=== PATIENT | female | born 1995 | race Asian ===

== ENCOUNTER → 2016-08-21 | Outpatient (REF) | payer OTHER ==
[~2016-08-21] MED LIST: BETH25TA37 PO; BUTATAB6 PO; CIPR500T89 PO; DICL75TA PO; Docusate Sod/Senna PO; IBUP80TA PO; METH-107 PO; NEUR100C PO; PEG1POW PO; PRED20TAB PO; PROT1TAB2 PO; ZOFR4TAB3 PO
[2016-08-21 18:10] LABS: BASO % 0.2 % (0.0-1.0); EOS # 0.1 K/mm3 (0.0-0.50); EOS % 0.7 % (0.0-3.0); LARGE UNSTAINED CELL # 0.2 K/mm3 (0.0-0.4); LARGE UNSTAINED CELL % 1.5 % (0.0-4.0); LYMPH # 2.2 K/mm3 (1.5-6.5); LYMPH % 20.2 % (24.0-44.0); MEAN CORPUSCULAR HEMOGLOBIN 21.1 pg (27.0-33.0); MEAN CORPUSCULAR HGB CONC 30.2 g/dl (32.0-36.5); MEAN CORPUSCULAR VOLUME 69.6 fl (80.0-96.0); MONO # 0.4 K/mm3 (0.0-0.8); MONO % 3.5 % (0.0-5.0); NEUTROPHILS # 8.2 K/mm3 (1.8-7.7); PLATELET COUNT, AUTOMATED 176 k/mm3 (150-450); RED CELL DISTRIBUTION WIDTH 14.5 % (11.5-14.5); WHITE BLOOD COUNT 11.1 K/mm3 (4.0-10.0)
[2016-08-21 19:03] LABS: ALBUMIN 3.8 GM/DL (3.2-5.2); ALBUMIN/GLOBULIN RATIO 1.19 (1.00-1.93); ALKALINE PHOSPHATASE 68 U/L (45-117); ALT/SGPT 41 U/L (12-78); AMYLASE 60 U/L (25-115); ANION GAP 10 MEQ/L (8-16); AST/SGOT 21 U/L (15-37); BILIRUBIN,TOTAL 0.7 MG/DL (0.2-1.0); BLOOD UREA NITROGEN 10 MG/DL (7-18); CALCIUM LEVEL 9.2 MG/DL (8.5-10.1); CARBON DIOXIDE LEVEL 26 MEQ/L (21-32); CHLORIDE LEVEL 106 MEQ/L (98-107); CREATININE FOR GFR 0.87 MG/DL (0.55-1.02); GLOMERULAR FILTRATION RATE > 60.0 (>60); GLUCOSE, FASTING 70 MG/DL (70-105); POTASSIUM SERUM 4.2 MEQ/L (3.5-5.1); SODIUM LEVEL 142 MEQ/L (136-145)
[2016-08-24 18:04] LABS: PERCENT SATURATION 24.8 % (13.2-37.4)
== END ==
LOC: M SFHCPLAZ 16:03
PROVIDERS: ATTEND Nurse Practitioner Family
DX: R10.13 Epigastric pain (principal)

== ENCOUNTER → 2016-09-22 | Outpatient (CLI) | payer OTHER ==
--- NOTE | 2016-09-22 08:37 | REP ---
Clinical: Epigastric pain. Technique: Alejandra scale ultrasound using curved array transducer. Findings: The liver and pancreas are normal in contour, size, and echogenicity without focal hepatic or pancreatic lesions identified. The gallbladder is normal without gallstones, wall thickening or pericholecystic fluid. No biliary ductal dilatation is appreciated, and the common bile duct measures 4.8 mm diameter. The right kidney is normal in reniform shape without hydronephrosis and measures 10.1 x 5.2 x 3.9 cm. No ascites. Visualized portions of the abdominal aorta normal. Impression: Normal right upper quadrant and gallbladder abdominal ultrasound. Signed by Khai Grant MD 09/22/2016 08:29 A
== END ==
LOC: M RAD 07:35
PROVIDERS: ATTEND Nurse Practitioner Adult Health
DX: R10.13 Epigastric pain (principal)

== ENCOUNTER → 2017-03-25 | Outpatient (REF) | payer OTHER ==
[~2017-03-25] MED LIST changes: +BUPR150T5 PO; +CIPR-249 PO; -CIPR500T89 PO; -METH-107 PO; +METH1TAB40 PO; +NUVAMIS2 PV; +OMEP40CA2 PO
[2017-03-25 17:55] LABS: ALBUMIN 3.9 GM/DL (3.2-5.2); ALBUMIN/GLOBULIN RATIO 1.08 (1.00-1.93); ALKALINE PHOSPHATASE 75 U/L (45-117); ALT/SGPT 21 U/L (12-78); AMYLASE 80 U/L (25-115); ANION GAP 8 MEQ/L (8-16); AST/SGOT 19 U/L (15-37); BILIRUBIN,TOTAL 0.9 MG/DL (0.2-1.0); BLOOD UREA NITROGEN 11 MG/DL (7-18); CALCIUM LEVEL 9.5 MG/DL (8.5-10.1); CARBON DIOXIDE LEVEL 25 MEQ/L (21-32); CHLORIDE LEVEL 105 MEQ/L (98-107); CREATININE FOR GFR 0.88 MG/DL (0.55-1.02); GLOMERULAR FILTRATION RATE > 60.0 (>60); GLUCOSE, FASTING 76 MG/DL (70-105); POTASSIUM SERUM 4.2 MEQ/L (3.5-5.1); SODIUM LEVEL 138 MEQ/L (136-145); TOTAL PROTEIN 7.5 GM/DL (6.4-8.2)
[2017-03-25 19:06] LABS: BASO % 0.3 % (0.0-1.0); EOS % 0.3 % (0.0-3.0); LARGE UNSTAINED CELL # 0.1 K/mm3 (0.0-0.4); LARGE UNSTAINED CELL % 0.9 % (0.0-4.0); LYMPH # 2.7 K/mm3 (1.5-6.5); LYMPH % 21.6 % (24.0-44.0); MEAN CORPUSCULAR HEMOGLOBIN 21.7 pg (27.0-33.0); MEAN CORPUSCULAR HGB CONC 31.5 g/dl (32.0-36.5); MEAN CORPUSCULAR VOLUME 68.9 fl (80.0-96.0); MONO # 0.4 K/mm3 (0.0-0.8); MONO % 3.1 % (0.0-5.0); NEUTROPHILS # 8.8 K/mm3 (1.8-7.7); NEUTROPHILS % 73.8 % (36.0-66.0); PLATELET COUNT, AUTOMATED 202 k/mm3 (150-450); RED CELL DISTRIBUTION WIDTH 14.4 % (11.5-14.5)
[2017-03-25 19:09] LABS: ADD MORPHOLOGY? YES
[2017-03-25 21:12] LABS: MICROCYTOSIS 3+
[2017-03-25 21:13] LABS: GIANT PLATELETS 1+
== END ==
LOC: M SFHCPLAZ 15:27
PROVIDERS: ATTEND Nurse Practitioner Family
DX: K21.9 Gastro-esophageal reflux disease without esophagitis (principal); R10.13 Epigastric pain; R53.83 Other fatigue; R11.0 Nausea

== ENCOUNTER → 2017-04-09 | Outpatient (CLI) | payer OTHER ==
--- NOTE | 2017-04-09 14:45 | REP ---
Hepatobiliary scan and gallbladder ejection fraction: History: Epigastric pain and nausea. Technique: 6.6 mCi of technetium-99m mebrofenin was injected and sequential anterior images are acquired. 65 minutes after the mebrofenin injection, the patient consumed 8 ounces Ensure and an additional 60 minutes of imaging was acquired. Regions of interest are plotted around the gallbladder. Findings: The initial hepatocellular parenchymal uptake phase is normal and homogeneous. Intra- and extra-hepatic bile ducts and duodenum are labeled by the 10 -minute image. The gallbladder is first labeled on the 10 -minute image. There is normal washout from the liver parenchyma into the gallbladder and small intestine on subsequent images. The gallbladder ejection fraction is 15 %. Values greater than 35 % are considered normal with this technique. Impression: Normal hepatobiliary scan and decreased gallbladder ejection fraction. Signed by Francisco Ramos MD 04/09/2017 10:47 A
== END ==
LOC: M RAD 07:57
PROVIDERS: ATTEND Nurse Practitioner Family
DX: K21.9 Gastro-esophageal reflux disease without esophagitis (principal); R10.13 Epigastric pain; R11.0 Nausea

== ENCOUNTER → 2017-04-15 | Outpatient (REF) | payer OTHER | LOC: M SFHCPLAZ 06:00 | PROVIDERS: ATTEND Nurse Practitioner Family | DX: K21.9 Gastro-esophageal reflux disease without esophagitis (principal); R10.13 Epigastric pain ==

== ENCOUNTER 2017-05-21 11:59 | Day surgery (SDC) | payer OTHER ==
[~2017-05-21] VITALS: Ht 162.6 cm; Wt 89.8 kg
[2017-05-21] MEDS ORDERED: LR 1,000 ML IV SCH ×2 (12:15→14:45)
[2017-05-21 12:38] LABS: CONTROL LINE UCG INT CTR LINE PRESENT
[2017-05-21] MEDS ORDERED: LIDOCAINE 2% INJ 100 MG/5 ML SDV (FOR ANES.) As Ordered ONE (13:13)
[2017-05-21] MEDS ORDERED: GLYCOPYRROLATE INJ 0.2 MG/ML 2 ML VIAL As Ordered ONE (13:13)
[2017-05-21] MEDS ORDERED: dexameTHASONE 4 MG/ML 1ML VIAL (J1100) As Ordered ONE (13:13)
[2017-05-21] MEDS ORDERED: PROPOFOL 200 MG/20 ML VIAL As Ordered ONE (13:13)
[2017-05-21] MEDS ORDERED: ROCURONIUM BROMIDE 50 MG/5 ML VIAL/SYRINGE As Ordered ONE (13:13)
[2017-05-21] MEDS ORDERED: NEOSTIGMINE 10 MG/10 ML VIAL (J2710) As Ordered ONE (13:13)
[2017-05-21] MEDS ORDERED: ONDANSETRON 4MG/2ML VIAL (J2405) As Ordered ONE (13:13)
[2017-05-21] MEDS ORDERED: HYDROmorphone HCL 2 MG/ML 1ML VIAL (J1170) As Ordered ONE (13:13)
[2017-05-21] MEDS ORDERED: fentaNYL 100 MCG/2 ML INJECTION (J3010) As Ordered ONE (13:14)
[2017-05-21] MEDS ORDERED: MIDAZOLAM INJ 2 MG/2 ML VIAL (J2250) As Ordered ONE (13:14)
[2017-05-21] MEDS ORDERED: BUPIVACAINE/EPIN 0.25% 30 ML VIAL As Ordered ONE (13:29)
[2017-05-21] MEDS ORDERED: fentaNYL 100 MCG/2 ML INJECTION (J3010) IV PRN (14:45)
[2017-05-21] MEDS ORDERED: METOCLOPRAMIDE INJ 10MG/2ML VIAL (J2765) IV PRN (14:45)
[2017-05-21] MEDS ORDERED: HYDROmorphone HCL 1 MG/ML SYRINGE (J1170) IV PRN (14:45)
[2017-05-21] MEDS ORDERED: PERCOCET 5MG/325MG TAB PO PRN (14:45)
[2017-05-21] MEDS ORDERED: NORCO, ANEXSIA 5/325MG TABLET (HYDROcodone/ACETAMINOPHEN) PO PRN (14:45)
[2017-05-21] MEDS ORDERED: ONDANSETRON 4MG/2ML VIAL (J2405) IV PRN (14:45)
[2017-05-21 16:40] VITALS: BP 124/60
--- NOTE | 2017-05-21 19:41 | RO ---
DATE OF PROCEDURE: 05/21/2017 PREOPERATIVE DIAGNOSIS: Biliary dyskinesia. POSTOPERATIVE DIAGNOSIS: Biliary dyskinesia. PROCEDURE: Laparoscopic cholecystectomy. SURGEON: Dr. Sapp DIRECTOR DRUG: Dr. Aiken ANESTHESIA: General: ESTIMATED BLOOD LOSS: 5 COMPLICATIONS: None. INDICATION FOR PROCEDURE: The patient is a 21-year-old female presents with intermittent right upper quadrant abdominal pain found to have biliary dyskinesia. Recommendation was to proceed with laparoscopic possible open cholecystectomy. Risks and procedure not limited but including bleeding, infection, hernia formation, damage surrounding structure need further surgery discussed in detail with the patient. Informed was obtained and procedure was planned. PROCEDURE: The patient was brought back to operating room six. After sufficient sedation the abdomen was sterilely prepped, draped. Next a time out was done for proper patient, proper procedure. Following that stab incision made in left lower quadrant. Veress needle was inserted and the abdomen was insufflated with 50 mmHg. Next a 5 mm infraumbilical incision made. OptiVu port was used to gain access to the abdomen. Once the abdomen was entered, Veress needle site was examined. There are no signs of injury. Veress needle was then removed. The 10 mm port was then placed subxiphoid. Two 5 meters ports in right upper quadrant. Next, the fundus of gallbladder is grasped elevated up towards the right shoulder. Cystic duct and cystic artery were both then dissected free using combination of blunt and sharp dissection. Once they were both clearly identified they were both doubly clipped and cut. Gallbladder is removed from gallbladder fossa electrocautery brought out through the subxiphoid port site in a 10 mm EndoCatch bag. Abdomen was then desufflated. Skin incisions were closed with 4-0 Vicryl subcuticular sutures. The abdomen cleaned and dried. Steri-Strips, 4x4 and tape were applied thus ending procedure.
== END 2017-05-21 16:45 | disposition home or self-care (01) ==
LOC: M SDC 11:59
PROVIDERS: ATTEND Surgery
DX: K82.8 Other specified diseases of gallbladder (principal); K21.9 Gastro-esophageal reflux disease without esophagitis; F41.9 Anxiety disorder, unspecified; F32.9 Major depressive disorder, single episode, unspecified; G43.909 Migraine, unspecified, not intractable, without status migrainosus; Z79.899 Other long term (current) drug therapy; Z79.3 Long term (current) use of hormonal contraceptives

== ENCOUNTER → 2018-09-20 | Outpatient (REF) | payer OTHER ==
[~2018-09-20] MED LIST changes: +ZOFR4TAB14 PO; -ZOFR4TAB3 PO
== END ==
LOC: M LAB REF 12:59
PROVIDERS: ATTEND Advanced Practice Midwife
DX: Z12.4 Encounter for screening for malignant neoplasm of cervix (principal)

== ENCOUNTER → 2018-09-30 | Outpatient (CLI) | payer OTHER ==
--- NOTE | 2018-09-30 15:52 | REP ---
SONOGRAPHY OF THE PELVIS: The uterus measures 7.4 x 3.8 x 4.5 cm. Endometrial stripe is 2.4 mm, normal. The uterus is anteverted. The right ovary measures 3.9 x 2.6 x 1.7 cm. Within this structure is a 4.5 x 4.6 x 2.8 mm echogenic focus. The resistive index is 0.40. Left ovary 4.1 x 2.1 x 2.5 cm. No abnormality within the ovary. No free fluid in cul-de-sac. IMPRESSION: Normal study of the uterus. No torsion bilaterally. There is an echogenic focus in the right ovary. This could represent a fat deposit involuted follicle or possibly even some other type of lesion. The bladder did measure 4.1 x 1.2 x 6.3 cm. Unreviewed
== END ==
LOC: M RAD 14:03
PROVIDERS: ATTEND Advanced Practice Midwife
DX: R10.9 Unspecified abdominal pain (principal)

== ENCOUNTER → 2020-07-18 | Outpatient (CLI) | payer OTHER ==
[~2020-07-18] MED LIST changes: -OMEP40CA2 PO; +OMEP40CA97 PO
--- NOTE | 2020-07-18 16:52 | REP ---
INDICATION: EPIGASTRIC MASS EVAL FOR INCISIONAL HERNIA. COMPARISON: Abdomen and pelvis CT dated 08/21/2014. TECHNIQUE: Multiple real-time ultrasonographic images. FINDINGS: Ultrasound of the palpable lump in the abdominal right upper quadrant is performed between 2 scars. There is an ovoid slightly hypoechoic mass within the soft tissues, very subtle measuring 3.2 x 1.5 x 3.0 cm. With Doppler ultrasound no vascular flow is identified. IMPRESSION: Nonspecific mass within the right upper quadrant abdominal wall as described. This could represent lipoma or other soft tissue mass. I do not see an intraperitoneal extension on the images provided. Consider follow-up MRI or CT for further evaluation. <Electronically signed by Geoff Ramirez > 07/18/20 [id number]
== END ==
LOC: M RAD 13:50
PROVIDERS: ATTEND Physician Assistant
DX: R19.06 Epigastric swelling, mass or lump (principal)

== ENCOUNTER → 2020-08-16 | Outpatient (CLI) | payer OTHER ==
[~2020-08-16] MED LIST changes: +GASTROGRAFIN SOLUTION 30ML (Q9963) As Ordered ONE; +ISOVUE-370 76% 100ML VIAL As Ordered ONE
--- NOTE | 2020-08-16 17:58 | REP ---
INDICATION: EPIGASTRIC PAIN. COMPARISON: None. TECHNIQUE: Axial contrast-enhanced images of the abdomen using oral and 100 cc Isovue 370 intravenous contrast material with coronal and sagittal reformations. . This CT examination was performed using the following dose reduction techniques: Automated exposure control, adjustment of mA and/or kv according to the patient's size, and use of iterative reconstruction technique. FINDINGS: Lung bases are clear. Visualized heart and pericardium normal. Liver, spleen, pancreas, bilateral adrenal glands and kidneys are normal. Evidence for prior cholecystectomy. Visualized portions of the small and large bowel are unremarkable. There is a 2.8 cm fat containing supraumbilical ventral hernia to the right of midline (series 201; images 44-53). No ascites in the visualized abdomen. No free air. No adenopathy. Abdominal aorta and vasculature appear normal. Musculoskeletal structures intact and without acute osseous abnormality. IMPRESSION: Small fat containing supraumbilical ventral hernia. <Electronically signed by Khai Grant > 08/16/20 [id number]
== END ==
LOC: M RAD 16:08
PROVIDERS: ATTEND Physician Assistant
DX: R10.13 Epigastric pain (principal)
CPT/HCPCS: 74160; Q9963; Q9967

== ENCOUNTER → 2020-09-11 | Outpatient (CLI) | payer OTHER ==
[~2020-09-11] MED LIST changes: +ATIV1TAB10 PO; +BUTA-199 PO; -BUTATAB6 PO; -GASTROGRAFIN SOLUTION 30ML (Q9963) As Ordered ONE; -ISOVUE-370 76% 100ML VIAL As Ordered ONE; +METH-1164 PO; -METH1TAB40 PO; +OMEP10CASR PO; +VENL150C43 PO
== END ==
LOC: M LABSMTC 11:01
PROVIDERS: ATTEND Anesthesiology
DX: Z01.812 Encounter for preprocedural laboratory examination (principal); Z20.822 Contact with and (suspected) exposure to COVID-19

== ENCOUNTER 2020-09-16 09:54 | Day surgery (SDC) | payer OTHER ==
[~2020-09-16] VITALS: Ht 162.6 cm; Wt 77.6 kg
[~2020-09-16 09:54] MED LIST changes: +LR 1,000 ML IV ONE; +ceFAZolin SOD 2 GM in IV 1 EA IV ONE
[2020-09-16 10:33] LABS: HEMATOCRIT 41.5 % (36.0-47.0); HEMOGLOBIN 12.3 g/dl (12.0-15.5); MEAN CORPUSCULAR HEMOGLOBIN 21.3 pg (27.0-33.0); MEAN CORPUSCULAR HGB CONC 29.6 g/dl (32.0-36.5); MEAN CORPUSCULAR VOLUME 71.9 fl (80.0-96.0); PLATELET COUNT, AUTOMATED 168 10^3/uL (150-450); RED BLOOD COUNT 5.77 10^6/uL (4.00-5.40); WHITE BLOOD COUNT 6.6 10^3/uL (4.0-10.0)
[2020-09-16] MEDS ORDERED: BUPIVACAINE/EPIN 0.25% 30 ML VIAL As Ordered ONE (11:16)
[2020-09-16] MEDS ORDERED: SUGAMMADEX SODIUM 500 MG/5 ML VIAL (BRIDION) As Ordered ONE (11:50)
[2020-09-16] MEDS ORDERED: METOCLOPRAMIDE INJ 10MG/2ML VIAL (J2765 PER 1) As Ordered ONE (11:50)
[2020-09-16] MEDS ORDERED: dexameTHASONE 4 MG/ML 1ML VIAL (J1100 PER 1MG) As Ordered ONE (11:50)
[2020-09-16] MEDS ORDERED: LIDOCAINE 2% 100MG/5ML SDV (FOR ANES.) As Ordered ONE (11:50)
[2020-09-16] MEDS ORDERED: KETOROLAC 60MG 2ML VIAL As Ordered ONE (11:50)
[2020-09-16] MEDS ORDERED: MIDAZOLAM INJ 2MG/2ML VIAL (J2250 PER 1MG) As Ordered ONE (11:50)
[2020-09-16] MEDS ORDERED: ROCURONIUM BROMIDE 50 MG/5 ML VIAL As Ordered ONE (11:50)
[2020-09-16] MEDS ORDERED: fentaNYL 250 MCG/5 ML INJECTION (J3010) As Ordered ONE (11:50)
[2020-09-16] MEDS ORDERED: ONDANSETRON 4MG/2ML VIAL As Ordered ONE (11:50)
[2020-09-16] MEDS ORDERED: propofoL 200 MG/20 ML VIAL As Ordered ONE ×2 (11:50→12:12)
[2020-09-16] MEDS ORDERED: ACETAMINOPHEN 1000MG 100ML IV BTL (OFIRMEV) (J0131 PER 10MG) As Ordered ONE (11:50)
[2020-09-16] MEDS ORDERED: fentaNYL 100 MCG/2 ML INJECTION (J3010) As Ordered ONE (12:56)
[2020-09-16] MEDS ORDERED: PERCOCET 5MG/325MG TAB As Ordered ONE ×2 (12:56→15:22)
[2020-09-16] MEDS: fentaNYL 100 MCG/2 ML INJECTION (J3010) IV PRN ×3 (13:00→13:10)
[2020-09-16] MEDS ORDERED: ONDANSETRON 4MG/2ML VIAL IV PRN (13:15)
[2020-09-16] MEDS ORDERED: METOCLOPRAMIDE INJ 10MG/2ML VIAL (J2765 PER 1) IV PRN (13:15)
[2020-09-16] MEDS ORDERED: LR 1,000 ML IV SCH (13:15)
[2020-09-16] MEDS ORDERED: PERCOCET 5MG/325MG TAB PO PRN (13:15)
[2020-09-16] MEDS ORDERED: NORCO, ANEXSIA 5/325MG TABLET (HYDROcodone/ACETAMINOPHEN) PO PRN (13:15)
--- NOTE | 2020-09-16 13:15 | RO ---
OPERATIVE NOTE DATE OF OPERATION: 09/16/2020 PREOPERATIVE DIAGNOSIS: Incarcerated incisional hernia. POSTOPERATIVE DIAGNOSIS: Incarcerated incisional hernia. PROCEDURES: Robotic repair of incarcerated incisional hernia. SURGEON: Geoff Sapp DO FIG BAR MACHINE OPERATOR: JAVON BASS ANESTHESIA: General. ESTIMATED BLOOD LOSS: 5 mL. COMPLICATIONS: None. INDICATIONS FOR PROCEDURE: The patient is a 25-year-old female status post laparoscopic cholecystectomy a few years ago and now presents with epigastric tenderness and a bulge. She was found to have an epigastric incisional hernia from a prior port site. Recommendation is to proceed with robotic repair. Risks and benefits of the procedure, not limited to, but including bleeding, infection, hernia formation, hernia recurrence, damage to surrounding structures, and need for further surgery, were discussed in detail with the patient. Informed consent was obtained and the procedure was planned. DESCRIPTION OF PROCEDURE: The patient was brought back to operating room #7. After sufficient sedation, the abdomen was sterilely prepped and draped. Next, a time-out was done to confirm the proper patient and proper procedure. Following that, in the left lower quadrant, an 8-mm incision was made and an 8-mm Optiview port was used to gain access to the abdomen. Once the abdomen was entered, two more ports were placed, one infraumbilically in the midline and one in the left mid abdomen. Next, the robot was docked to the ports. Once the abdomen was examined from the console, I was able to see the hernia inside of the falciform ligament. The falciform was transected and the preperitoneal space was dissected free superiorly until the hernia was identified. The defect itself was about a centimeter in size. After reducing all of the fat contents that were within it, I was able to suture it closed primarily using a 0-Stratafix suture. Next, a 2 x 4-cm oval of ProGrip mesh was then placed over top of the suture defect and then the peritoneal defect was closed over top of this using a 2-0 V-Loc suture. Once I was completed, needles were removed. The abdomen was desufflated. Skin incisions were closed with 4-0 Vicryl subcuticular sutures. The abdomen was cleaned and dried. Steri-Strips, 4x4, and tape were applied.
[2020-09-16] MEDS ORDERED: MORPHINE 4 MG/ML 1ML VIAL/SYRINGE (J2270) As Ordered ONE (13:26)
[2020-09-16] MEDS ORDERED: MORPHINE 2 MG/ML 1ML VIAL (J2270) IV PRN (13:45)
[2020-09-16 15:15] VITALS: BP 117/71
== END 2020-09-16 15:30 | disposition home or self-care (01) ==
LOC: M SDC 09:54
PROVIDERS: ATTEND Surgery
DX: K43.0 Incisional hernia with obstruction, without gangrene (principal); K21.9 Gastro-esophageal reflux disease without esophagitis; F41.9 Anxiety disorder, unspecified; F32.9 Major depressive disorder, single episode, unspecified; D64.9 Anemia, unspecified; Z79.899 Other long term (current) drug therapy
CPT/HCPCS: 36415; 49655; 81025; 85027; C1781; J0131; J0690; J1100; J1885; J2250; J2270; J2405; J2765; J3010; S2900

== ENCOUNTER 2020-12-30 09:43 | Emergency (ER) | payer MEDICAID, OTHER ==
[~2020-12-30] VITALS: Ht 162.6 cm; Wt 80.9 kg
[~2020-12-30 09:43] MED LIST changes: -LR 1,000 ML IV ONE; -PEG1POW PO; +POLY17PO18 PO; -ceFAZolin SOD 2 GM in IV 1 EA IV ONE
[2020-12-30] MEDS ORDERED: KETOROLAC 30 MG/ML 1ML VIAL IV ONE (11:05)
[2020-12-30 11:39] LABS: BASO % 0.3 % (0.0-1.0); EOS # 0.1 10^3/uL (0.0-0.5); EOS % 0.9 % (0.0-3.0); HEMOGLOBIN 12.5 g/dl (12.0-15.5); LYMPH # 2.2 10^3/uL (1.5-5.0); LYMPH % 28.3 % (24.0-44.0); MEAN CORPUSCULAR HEMOGLOBIN 21.6 pg (27.0-33.0); MEAN CORPUSCULAR HGB CONC 30.5 g/dl (32.0-36.5); MEAN CORPUSCULAR VOLUME 70.8 fl (80.0-96.0); MONO # 0.5 10^3/uL (0.0-0.8); MONO % 6.3 % (2.0-8.0); NEUTROPHILS % 63.8 % (36.0-66.0); PLATELET COUNT, AUTOMATED 251 10^3/uL (150-450); RED BLOOD COUNT 5.79 10^6/uL (4.00-5.40); WHITE BLOOD COUNT 7.8 10^3/uL (4.0-10.0)
[2020-12-30 12:28] LABS: BLOOD UREA NITROGEN 11 MG/DL (7-18); CALCIUM LEVEL 9.2 MG/DL (8.5-10.1); CARBON DIOXIDE LEVEL 25 MEQ/L (21-32); CHLORIDE LEVEL 108 MEQ/L (98-107); CREATININE FOR GFR 0.86 MG/DL (0.55-1.30); GLOMERULAR FILTRATION RATE > 60.0 (>60); GLUCOSE, FASTING 91 MG/DL (70-100); POTASSIUM SERUM 4.3 MEQ/L (3.5-5.1); SODIUM LEVEL 138 MEQ/L (136-145)
[2020-12-30 12:29] LABS: CK-MB VALUE MASS < 1.0 NG/ML (<3.6); CPK CREATINE PHOSPHOKINASE 96 U/L (26-192); MB/CK RELATIVE INDEX 1.04 (< OR =4); THYROID STIMULATING HORMONE 0.537 uIU/ML (0.358-3.740); TROPONIN I < 0.02 NG/ML (< 0.10)
[2020-12-30 12:45] VITALS: BP 121/78
--- NOTE | 2020-12-30 20:15 | ECGEPIP ---
[facility] - ED Test Date: 2020-12-30 Pat Name: ANUJ DAIGLE Department: Room: - Gender: Female V/[employer] [place] Signal Officer: KATE : 1995 Requested By: DARLING ALEJANDRO Order Number: [id number] Reading MD: Anastacio Benoit Measurements Intervals [place] Rate: 65 P: 28 [place]: 172 QRS: 29 QRSD: 82 T: 40 QT: 398 QTc: 413 Interpretive Statements Normal sinus rhythm Delayed anterior R wave progression Low QRS complex voltage in the limb leads Similar to tracing done 03-25-16 Electronically Signed on 12-30-2020 20:14:44 EDT by Anastacio Benoit
== END 2020-12-30 12:53 | disposition home or self-care (01) ==
LOC: M ED 09:43
DX: R55 Syncope and collapse (principal); S06.0X9A Concussion with loss of consciousness of unspecified duration, initial encounter; W01.0XXA Fall on same level from slipping, tripping and stumbling without subsequent striking against object, initial encounter; Y92.511 Restaurant or cafe as the place of occurrence of the external cause; Y93.9 Activity, unspecified; Y99.9 Unspecified external cause status
CPT/HCPCS: 80048; 82550; 82553; 84443; 84702; 85025; 93005; 93041; 96374; 99285; J1885

== ENCOUNTER → 2021-07-22 | Outpatient (CLI) | payer OTHER, MEDICAID ==
[~2021-07-22] MED LIST changes: +OMEP40CA4 PO; -OMEP40CA97 PO
== END ==
LOC: M WUC 09:22
PROVIDERS: ATTEND Nurse Practitioner Family
DX: M79.641 Pain in right hand (principal); M79.644 Pain in right finger(s)

== ENCOUNTER → 2022-09-17 | Outpatient (REF) ==
[~2022-09-17] MED LIST changes: +BUPR-71 PO; -BUPR150T5 PO
== END ==
LOC: M EMP 10:42
PROVIDERS: ATTEND Family Medicine
DX: Z11.52 Encounter for screening for COVID-19 (principal)

== ENCOUNTER → 2022-09-21 | Outpatient (REF) | LOC: M EMP 08:08 | PROVIDERS: ATTEND Family Medicine | DX: Z11.52 Encounter for screening for COVID-19 (principal) ==

== ENCOUNTER → 2022-11-03 | Outpatient (REF) | LOC: M EMP 11:19 | PROVIDERS: ATTEND Family Medicine | DX: Z11.52 Encounter for screening for COVID-19 (principal) ==

== ENCOUNTER → 2023-02-05 | Outpatient (REF) | payer OTHER, MEDICAID ==
[~2023-02-05] MED LIST changes: +ETON1VAG7 PV; -NUVAMIS2 PV
[2023-02-05 08:10] LABS: BASO % 0.4 % (0.0-1.0); EOS # 0.3 10^3/uL (0.0-0.5); EOS % 3.8 % (0.0-3.0); HEMATOCRIT 40.4 % (36.0-47.0); HEMOGLOBIN 12.6 g/dl (12.0-15.5); LYMPH # 2.6 10^3/uL (1.5-5.0); LYMPH % 32.8 % (24.0-44.0); MEAN CORPUSCULAR HEMOGLOBIN 21.6 pg (27.0-33.0); MEAN CORPUSCULAR HGB CONC 31.2 g/dl (32.0-36.5); MEAN CORPUSCULAR VOLUME 69.2 fl (80.0-96.0); MONO # 0.5 10^3/uL (0.0-0.8); MONO % 6.9 % (2.0-8.0); NEUTROPHILS # 4.4 10^3/uL (1.5-8.5); NEUTROPHILS % 55.8 % (36.0-66.0); PLATELET COUNT, AUTOMATED 201 10^3/uL (150-450); RED BLOOD COUNT 5.84 10^6/uL (4.00-5.40); WHITE BLOOD COUNT 7.8 10^3/uL (4.0-10.0)
[2023-02-05 08:12] LABS: APPEARANCE, URINE CLEAR (CLEAR); BACTERIA, URINE AUTO NEGATIVE (NEGATIVE); BILIRUBIN, URINE AUTO NEGATIVE (NEGATIVE); BLOOD, URINE BLOOD NEGATIVE (NEGATIVE); COLOR, URINE YELLOW (YELLOW); GLUCOSE, URINE (UA) AUTO NEGATIVE (NEGATIVE); KETONE, URINE AUTO NEGATIVE (NEGATIVE); LEUKOCYTE ESTERASE, URINE AUTO NEGATIVE (NEGATIVE); MUCUS, URINE SMALL (NEGATIVE); NITRITE, URINE AUTO NEGATIVE (NEGATIVE); PROTEIN, URINE AUTO NEGATIVE (NEGATIVE); RBC, URINE AUTO 0 /HPF (0-3); SPECIFIC GRAVITY URINE AUTO 1.024 (1.002-1.035); SQUAMOUS EPITHELIAL CELL UR AU 0 /HPF (0-6); UROBILINOGEN, URINE AUTO 0.2 mg/dL (0.0-2.0); WBC, URINE AUTO 0 /HPF (0-3)
[2023-02-05 08:37] LABS: ALBUMIN 4.1 G/DL (3.2-5.2); ALKALINE PHOSPHATASE 70 U/L (46-116); ALT/SGPT 9 U/L (7.0-40); AST/SGOT 22 U/L (<34); BILIRUBIN,TOTAL 0.5 MG/DL (0.3-1.2); BLOOD UREA NITROGEN 22 MG/DL (9-23); CALCIUM LEVEL 9.1 MG/DL (8.5-10.1); CARBON DIOXIDE LEVEL 26 MMOL/L (20-31); CHLORIDE LEVEL 109 MMOL/L (98-107); CHOLESTEROL LEVEL 181 MG/DL (<200); CREATININE FOR GFR 0.92 MG/DL (0.55-1.30); GLOMERULAR FILTRATION RATE > 60.0 (>60); GLUCOSE, FASTING 94 MG/DL (60-100); HDL CHOLESTEROL 53.1 MG/DL (>40); LDL CHOLESTEROL 107.9 MG/DL (<100); NON-HDL-C 127.9 MG/DL; POTASSIUM SERUM 4.3 MMOL/L (3.5-5.1); SODIUM LEVEL 139 MMOL/L (136-145); TOTAL PROTEIN 6.9 G/DL (5.7-8.2); TRIGLYCERIDES LEVEL 100 MG/DL (<150)
[2023-02-05 08:38] LABS: FERRITIN 24.4 NG/ML (7.3-270.7); THYROXINE (T4) 8.3 UG/DL (4.5-10.9); TOTAL 25(OH) VITAMIN D 26.5 NG/ML (20.0-100.0)
[2023-02-05 08:39] LABS: FREE T3 3.4 PG/ML (2.3-4.2); FREE T4 1.04 NG/DL (0.89-1.76); THYROID STIMULATING HORMONE 0.883 uIU/ML (0.55-4.78); VITAMIN B12 LEVEL 840 PG/ML (211-911)
== END ==
LOC: M LAB REF 07:46
PROVIDERS: ATTEND Family Medicine
DX: K21.9 Gastro-esophageal reflux disease without esophagitis (principal)

== ENCOUNTER → 2023-07-21 | Outpatient (REF) | payer OTHER ==
[2023-07-21 22:20] LABS: APPEARANCE, URINE HAZY (CLEAR); BACTERIA, URINE AUTO 1+ (NEGATIVE); BILIRUBIN, URINE AUTO NEGATIVE (NEGATIVE); BLOOD, URINE BLOOD 1+ (NEGATIVE); COLOR, URINE YELLOW (YELLOW); GLUCOSE, URINE (UA) AUTO NEGATIVE (NEGATIVE); KETONE, URINE AUTO NEGATIVE (NEGATIVE); LEUKOCYTE ESTERASE, URINE AUTO 2+ (NEGATIVE); MUCUS, URINE SMALL (NEGATIVE); NITRITE, URINE AUTO NEGATIVE (NEGATIVE); PROTEIN, URINE AUTO NEGATIVE (NEGATIVE); RBC, URINE AUTO 1 /HPF (0-3); SPECIFIC GRAVITY URINE AUTO 1.003 (1.002-1.035); SQUAMOUS EPITHELIAL CELL UR AU 1 /HPF (0-6); UROBILINOGEN, URINE AUTO 0.2 mg/dL (0.0-2.0); WBC, URINE AUTO 11 /HPF (0-3)
== END ==
LOC: M LAB REF 21:11
PROVIDERS: ATTEND Physician Assistant
DX: N39.0 Urinary tract infection, site not specified (principal)

== ENCOUNTER → 2023-07-26 | Outpatient (REF) | LOC: M EMP 10:30 | PROVIDERS: ATTEND Family Medicine | DX: Z11.52 Encounter for screening for COVID-19 (principal) ==

== ENCOUNTER → 2024-07-03 | Outpatient (REF) | LOC: M EMP 09:04 | PROVIDERS: ATTEND Family Medicine | DX: Z11.52 Encounter for screening for COVID-19 (principal) ==

== ENCOUNTER → 2024-08-31 | Outpatient (REF) | payer OTHER ==
[2024-08-31 08:16] LABS: BASO % 0.3 % (0.0-1.0); EOS # 0.2 10^3/uL (0.0-0.5); EOS % 2.1 % (0.0-3.0); HEMATOCRIT 39.4 % (36.0-47.0); HEMOGLOBIN 12.1 g/dl (12.0-15.5); LYMPH # 2.2 10^3/uL (1.5-5.0); LYMPH % 24.8 % (24.0-44.0); MEAN CORPUSCULAR HEMOGLOBIN 21.2 pg (27.0-33.0); MEAN CORPUSCULAR HGB CONC 30.7 g/dl (32.0-36.5); MEAN CORPUSCULAR VOLUME 68.9 fl (80.0-96.0); MONO # 0.6 10^3/uL (0.0-0.8); MONO % 6.5 % (2.0-8.0); NEUTROPHILS # 5.9 10^3/uL (1.5-8.5); PLATELET COUNT, AUTOMATED 198 10^3/uL (150-450); RED BLOOD COUNT 5.72 10^6/uL (4.00-5.40)
[2024-08-31 08:22] LABS: ERYTHROCYTE SEDIMENTATION RATE 10 mm/hr (0-20)
[2024-08-31 09:33] LABS: ALBUMIN 4.5 G/DL (3.2-5.2); ALKALINE PHOSPHATASE 70 U/L (35-104); ALT/SGPT 12 U/L (7.0-40); AST/SGOT 14 U/L (<34); BILIRUBIN,TOTAL 1.8 MG/DL (0.3-1.2); BLOOD UREA NITROGEN 19 MG/DL (9-23); C REACTIVE PROTEIN QUANTITATIV < 0.50 MG/DL (<1.0); CALCIUM LEVEL 9.3 MG/DL (8.5-10.1); CARBON DIOXIDE LEVEL 26 MMOL/L (20-31); CHLORIDE LEVEL 110 MMOL/L (98-107); CHOLESTEROL LEVEL 155 MG/DL (<200); CHOLESTEROL RISK RATIO 3.53 (<5); CREATININE FOR GFR 0.95 MG/DL (0.55-1.30); GLOMERULAR FILTRATION RATE > 60.0 (>60); GLUCOSE, FASTING 84 MG/DL (60-100); HDL CHOLESTEROL 43.9 MG/DL (>40); IRON (FE) 190 UG/DL (50-170); LDL CHOLESTEROL 96.5 MG/DL (<100); NON-HDL-C 111.1 MG/DL; POTASSIUM SERUM 4.3 MMOL/L (3.5-5.1); SODIUM LEVEL 141 MMOL/L (136-145); TRIGLYCERIDES LEVEL 73 MG/DL (<150)
[2024-08-31 09:36] LABS: FREE T4 1.34 NG/DL (0.89-1.76); THYROID STIMULATING HORMONE 0.778 uIU/ML (0.55-4.78)
[2024-08-31 09:37] LABS: FERRITIN 23.6 NG/ML (7.3-270.7); VITAMIN B12 LEVEL 575 PG/ML (211-911)
[2024-08-31 11:29] LABS: HEMOGLOBIN A1c 4.8 % (4.0-6.0)
== END ==
LOC: M LAB REF 07:48
PROVIDERS: ATTEND Physician Assistant
DX: R23.3 Spontaneous ecchymoses (principal); F33.1 Major depressive disorder, recurrent, moderate

== ENCOUNTER → 2024-09-14 | Outpatient (REF) | payer OTHER ==
[2024-09-14 09:50] LABS: APPEARANCE, URINE CLEAR (CLEAR); BACTERIA, URINE AUTO NEGATIVE (NEGATIVE); BILIRUBIN, URINE AUTO NEGATIVE (NEGATIVE); BLOOD, URINE BLOOD NEGATIVE (NEGATIVE); COLOR, URINE YELLOW (YELLOW); GLUCOSE, URINE (UA) AUTO NEGATIVE (NEGATIVE); KETONE, URINE AUTO NEGATIVE (NEGATIVE); LEUKOCYTE ESTERASE, URINE AUTO NEGATIVE (NEGATIVE); NITRITE, URINE AUTO NEGATIVE (NEGATIVE); PROTEIN, URINE AUTO NEGATIVE (NEGATIVE); RBC, URINE AUTO 0 /HPF (0-3); SPECIFIC GRAVITY URINE AUTO 1.016 (1.002-1.035); SQUAMOUS EPITHELIAL CELL UR AU 1 /HPF (0-6); UROBILINOGEN, URINE AUTO 0.2 mg/dL (0.0-2.0); WBC, URINE AUTO 0 /HPF (0-3)
[2024-09-15 13:22] LABS: HAPTOGLOBIN 140 mg/dL (43-212)
== END ==
LOC: M LAB REF 08:02
PROVIDERS: ATTEND Physician Assistant
DX: R94.5 Abnormal results of liver function studies (principal)